=== PATIENT | female | born 1960 | race Caucasian/White ===

== ENCOUNTER → 2019-04-01 | Outpatient (CLI) | payer OTHER ==
[~2019-04-01] MED LIST: AMIT25TA PO; CARI350T14 PO; DICL100G18 TP; DULA1.5P SQ; EZET10TA18 PO; GABA300C18 PO; GLIM4TAB2 PO; HYDR-2145 PO; IBUP-1060 PO; INSU100V13 SQ; INSU200I SQ; IOHEXOL 180 MG/ML 10 ML VIAL. ONE; LOSA25TA54 PO; METF10007 PO; PARO40TA3 PO; PROM25TA10 PO; SIMV40TA3 PO; methylPREDNISolone ACETATE 40 MG/ML VIAL. ONE; methylPREDNISolone ACETATE 80 MG/ML VIAL. ONE
--- NOTE | 2019-04-02 04:14 | PAIN ---
DATE OF SERVICE: 04/01/2019 INITIAL CONSULTATION FOR PAIN CLINIC CHIEF COMPLAINT: Low back and bilateral lower extremity pain. HISTORY OF PRESENT ILLNESS: This is a 58-year-old female who presents with history of pain in the low back bilaterally lower extremities, posterior gluteus, posterior lateral thighs, posterior calves and into the anterior thighs and medial thighs as well. The patient reports it is worse at night, worse with walking, standing, changing positions, better with sitting or lying down, awakens her from sleep at least 3 times at night. The patient reports it does not affect her bowel or bladder control but does affect her ability to walk at times as she has to sit after about 15-20 minutes on her feet. The patient has been doing exercise on her own, has had some physical therapy in the past and still does the exercises with her daughter who is a physical therapist as well helping her. The patient reports the pain is sharp, stabbing, throbbing, shooting with numbness and radiating pain in the legs, changes during the day, worse with walking, standing and some tingling in the low back as well and aching in the low back. The patient reports no specific injury or action she is aware of, gradually increased over time, has been worse for about the past 6 months. 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 She is on her feet most of her working day, usually 12 hours at a time. The patient did have a previous low back surgery in 1988, which was helpful at the time, has been doing fairly well until the last 6 months or so. The patient rates her disability rate from 0-10, 10 being the worst, is 9 with family and home responsibility and sexual behavior, 8 with life support activities, and social activity as well as recreation, 10 with occupational activities, and 2 with self-care activities. The patient did have MRI scan dated 02/21/2019 of the lumbar spine showing mild diffuse disk bulge at L4-L5 with ligamentum flavum hypertrophy and facet arthropathy, mild central canal stenosis, mild neural foraminal stenosis on the right. L5-S1 shows diffuse disk bulge with mild ligamentum flavum hypertrophy and facet arthropathy. No central canal stenosis, mild neural foraminal stenosis on the left, mild neural foraminal stenosis on the right. PAST MEDICAL HISTORY: Significant for diabetes, insulin-dependent; hypertension; arthritis; COPD; cigarette smoking, quit a year and half ago and cervical cancer. PAST SURGICAL HISTORY: Previous surgeries include L4-L5 diskectomy and fusion in 1988, previous cholecystectomy, tonsillectomy, hysterectomy and kidney stone surgically excised as well. CURRENT MEDICATIONS: Include amitriptyline, carisoprodol, diclofenac, Trulicity, ezetimibe, gabapentin, glimepiride, hydrochlorothiazide, ibuprofen, insulin, losartan, paroxetine, metformin and promethazine. ALLERGIES: The patient is allergic to TETRACYCLINE. FAMILY HISTORY: Significant for COPD. SOCIAL HISTORY: The patient drinks about one alcoholic drink every 2 months,. Does not use any illegal, illicit or recreational drugs. Quit smoking a half ago. She is , lives with her spouse, has one child, living at home and lives in [place], [place]. Again, works as a lpn or medical assistant. REVIEW OF SYSTEMS: The patient's review of systems is positive for those items mentioned in history of present illness. All systems reviewed and otherwise negative. It is complete, full and well documented on the patient's chart. PHYSICAL EXAMINATION: VITAL SIGNS: The patient's blood pressure is 134/77, pulse is 105, respirations 20 and temperature is 98.5 degrees Fahrenheit. Height is 5 feet 2 inches and weighs 205 pounds. GENERAL: The patient is awake, alert, oriented, appropriate, very pleasant demeanor. The patient is accompanied by her daughter. HEENT: Head shows normocephalic and atraumatic. Extraocular movements are intact and symmetrical. Oral cavity, mucous membranes are moist and pink. Dentition is intact. NECK: Shows anterior throat supple without palpable lymphadenopathy noted. Swallow reflex is symmetrical. CHEST: Shows normal on inspection. Breath sounds are clear to auscultation bilaterally. HEART: Shows S1 and S2 clear. No murmurs auscultated. ABDOMEN: Obese, soft, nontender and nondistended. No palpable organomegaly is noted. No rebound or guarding demonstrated. BACK: Shows spine grossly in the midline. Normal appearing thoracic kyphosis and some minor flattening of lumbar lordotic curvature. Well-healed surgical scar in the midline. Lumbar paraspinous muscle shows symmetrical on inspection, with palpation shows some moderate tenderness throughout the upper, middle and lower distribution of the paraspinous muscles bilaterally but only diffusely without radiation. No tenderness over the spinous processes, sacrum or sacroiliac regions. EXTREMITIES: The patient's lower extremities show deep tendon reflexes at 2+ in the patellar, 1+ in tendo-calcaneus tendons. Motor exam is 5/5 with dorsiflexion, extension, quadriceps and hamstring flexion. Peripheral pulses are 1+ posterior tibia. No peripheral edema is noted bilaterally. Lower extremities are warm and dry to touch, equal in color and appearance. Straight leg raise noted to be positive on the right at about 45 degrees, left is negative. Gaenslen's and Dve's maneuvers are negative bilaterally. The patient is able to stand, stand on her toes without significant difficulty or loss of balance, walks with normal appearing gait, does not appear to favor the right or left lower extremity significantly with ambulation. SKIN: The patient's skin shows warm and dry, good turgor. No edema. No sores, rashes or bruising. IMPRESSION: 1. This is a 58-year-old female with a long history approximately 6 months, increasing in the low back and bilateral lower extremities, right greater than left radicular pain. 2. MRI scan of the lumbar spine as noted. 3. Chronic obstructive pulmonary disease. 4. Arthritis. 5. Diabetes. PLAN: Options were discussed with the patient including conservative medical management, continued physical therapy, interventional techniques. She would like to pursue interventional techniques. We discussed a lumbar epidural steroid injection using description as well as anatomical models to describe the procedure. Risks were then discussed including, but not limited to bleeding, infection, possibility of epidural hematoma, subsequent neurologic compromise, dural puncture, headaches, spinal cord and/or nerve damage, side effects of steroid medication and poor results regarding pain control. The patient understands and wished to proceed. She will return to the clinic in approximately 2 weeks for followup, was counseled as to return appointment, activity level and side effects to be aware of. DIAGNOSES: Lumbar radiculopathy with lumbar degenerative disk disease and lumbar post-laminectomy syndrome. PROCEDURE: Lumbar epidural steroid injection, translaminar approach at the L4-L5 level using C-arm fluoroscopic guidance under sterile prep and drape using local anesthetic. MEDICATION INJECTED: A total of 120 mg Depo-Medrol plus 10 mL of preservative-free normal saline and 2 mL of contrast. CONDITION AT DISCHARGE: Stable. The patient tolerated the procedure well and had no complications. SUNIL DIAZ MD DR: FAISAL/leila JOB#: [id number] / [id number] SHAKA Viera
== END ==
LOC: PNCL 11:19
PROVIDERS: ATTEND Anesthesiology
DX: M51.16 Intervertebral disc disorders with radiculopathy, lumbar region (principal); M96.1 Postlaminectomy syndrome, not elsewhere classified; E11.9 Type 2 diabetes mellitus without complications; I10 Essential (primary) hypertension; M19.90 Unspecified osteoarthritis, unspecified site; J44.9 Chronic obstructive pulmonary disease, unspecified; Z90.710 Acquired absence of both cervix and uterus; Z98.890 Other specified postprocedural states; Z90.49 Acquired absence of other specified parts of digestive tract; Z79.899 Other long term (current) drug therapy; Z88.1 Allergy status to other antibiotic agents; Z87.891 Personal history of nicotine dependence; Z79.84 Long term (current) use of oral hypoglycemic drugs; Z85.41 Personal history of malignant neoplasm of cervix uteri
CPT/HCPCS: 62323; J1030; J1040; Q9965

== ENCOUNTER → 2019-05-15 | Outpatient (CLI) | payer OTHER ==
--- NOTE | 2019-05-15 14:55 | PAIN ---
DATE OF SERVICE: 05/15/2019 PROGRESS NOTE FOR PAIN CLINIC DIAGNOSES: Lumbar radiculopathy with lumbar degenerative disk disease and lumbar post-laminectomy syndrome. HISTORY OF PRESENT ILLNESS: The patient is a 58-year-old female who returns for followup status post lumbar epidural steroid injections x 2. The patient reports about 70% overall improvement with increased distance walking, doing work activities, household activities, sleeping better at night, does not awaken her from sleep at this time. The patient reports no new motor or sensory deficits, still significant pain in the low back and into the left lower extremity to some extent in the anterior aspect of the left leg, also across the low back, worse on the right side in the low back itself. The patient reports the pain is a 10 on a scale of 10 at its worst in the past week, 7 on average, 5 at its least and is a 5 today. The patient reports it is aching and dull, sharp at times in the left leg as well. The patient reports no new motor or sensory deficits. No new bowel or bladder incontinence or other complaints. PHYSICAL EXAMINATION: VITAL SIGNS: The patient's blood pressure is 141/90, pulse 101, respirations 16, temperature 98.3 degrees Fahrenheit, weight is 209 pounds. GENERAL: The patient is awake, alert, oriented, appropriate, very pleasant demeanor. The patient accompanied by her daughter. HEENT: Shows normocephalic, atraumatic. Extraocular movements intact and symmetrical. Oral cavity: Mucous membranes moist and pink. Dentition is intact. NECK: Shows anterior throat supple without palpable lymphadenopathy noted. Swallow reflex symmetrical. CHEST: Shows normal on inspection. Breath sounds clear to auscultation bilaterally. HEART: Shows S1, S2 clear. No murmurs auscultated. ABDOMEN: Soft, nontender, nondistended. No palpable organomegaly is noted. No rebound or guarding demonstrated. BACK: Shows spine grossly in the midline. Normal appearing thoracic kyphosis and lumbar lordotic curvature. The patient's lumbar paraspinous musculature shows symmetrical on inspection with a well-healed midline surgical scar. On palpation shows some moderate tenderness in the middle and lower distribution of paraspinous muscles diffusely, but only diffusely without radiation, without trigger points. The patient has good rotational motion of lumbar spine, both laterally as well as extension and flexion without difficulty. EXTREMITIES: Lower extremities show deep tendon reflexes 2+ in the patellar, 1+ tendo-calcaneus tendons. Motor exam is 5/5 with dorsiflexion and extension. Peripheral pulses are 1+ posterior tibial. No peripheral edema is noted. Options were discussed with the patient. The patient's old chart was reviewed as well as her current medication regimen updated. Current review of systems updated today as well. We will proceed with a third in the series of lumbar epidural steroid injection today under fluoroscopic guidance. Risks were again discussed including, but not limited to bleeding, infection, possibility of epidural hematoma, subsequent neurological compromise, dural puncture, headaches, spinal cord and/or nerve damage, side effects of steroid medication and poor results regarding pain control. The patient understands and wished to proceed. The patient will return to clinic in approximately 2 weeks for followup or as necessary. She was counseled as to return appointment, activity level as well as side effects to be aware of. The patient also will be ordered for physical therapy, water therapy at her local Physical Therapy Department. She also is discussing joining the [facility] that her daughter can add her into her family plan and I encouraged them to look into this further. The patient will continue with stretching and strengthening exercises as well as physical therapy, water therapy to start soon. DIAGNOSES: Lumbar radiculopathy with lumbar degenerative disk disease and lumbar post-laminectomy syndrome. PROCEDURE: Lumbar epidural steroid injection, translaminar approach L4-L5 level using C-arm fluoroscopic guidance under sterile prep and drape using local anesthetic. MEDICATION INJECTED: A total of 120 mg Depo-Medrol plus 10 mL of preservative-free normal saline and 2 mL of contrast. CONDITION AT DISCHARGE: Stable. The patient tolerated the procedure well, had no complications. SUNIL DIAZ MD DR: FAISAL/leila JOB#: [id number] / [id number] Gato Casillas
== END ==
LOC: PNCL 11:04
PROVIDERS: ATTEND Anesthesiology
DX: M51.16 Intervertebral disc disorders with radiculopathy, lumbar region (principal); M96.1 Postlaminectomy syndrome, not elsewhere classified
CPT/HCPCS: 62323; J1030; J1040; Q9965